=== PATIENT | female | born 1970 | race Two or more races ===

== ENCOUNTER 2017-11-08 11:41 | Observation (INO) | payer OTHER ==
[~2017-11-08] VITALS: Ht 154.9 cm; Wt 51.8 kg
[2017-11-08] MEDS ORDERED: ONDANSETRON ODT 4 MG ONE (11:58)
[2017-11-08] MEDS ORDERED: MORPHINE SULFATE 4 MG/ML, 1ML ONE (11:59)
[2017-11-08] MEDS: MORPHINE SULFATE 4 MG/ML, 1ML IVPush PRN ×2 (12:00→15:53)
[2017-11-08] MEDS ORDERED: SODIUM CHLORIDE FLUSH 10ML SYR IVF ONE (12:00)
[2017-11-08] MEDS ORDERED: ONDANSETRON ODT 4 MG PO ONE (12:00)
[2017-11-08 12:16] LABS: BASOPHILS # (AUTO) 0.02 x10^3/uL (0-0.1); BASOPHILS % (AUTO) 0 % (0-1); EOSINOPHILS # (AUTO) 0.09 x10^3/uL (0-0.4); EOSINOPHILS % (AUTO) 1 % (1-7); LYMPHOCYTES # (AUTO) 0.66 x10^3/uL (1-3.4); LYMPHOCYTES % (AUTO) 9 % (22-44); MD NO; MEAN CORPUSCULAR HEMOGLOBIN 25.9 pg (27.0-34.8); MEAN CORPUSCULAR HGB CONC 32.3 g/dL (32.4-35.8); MEAN PLATELET VOLUME 7.1 fL (7.4-10.4); MONOCYTES # (AUTO) 0.75 x10^3/uL (0.2-0.8); MONOCYTES % (AUTO) 10 % (2-9); NEUTROPHILS # (AUTO) 5.77 x10^3/uL (1.8-6.8); NEUTROPHILS % (AUTO) 79 % (42-75); PLATELET COUNT 409 x10^3/uL (130-400); RED BLOOD COUNT 5.03 x10^6/uL (3.82-5.3); RED CELL DISTRIBUTION WIDTH 15.8 % (9.6-15.2)
[2017-11-08 12:22] LABS: INTERNATIONAL NORMALIZED RATIO 1.92 (0.93-1.1); PROTHROMBIN TIME 19.7 Seconds (9.6-11.5)
[2017-11-08 12:25] LABS: ALBUMIN 3.4 g/dL (3.4-5.0); ANION GAP 6 mmol/L (5-15); CALCIUM 8.4 mg/dL (8.5-10.1); CHLORIDE 104 mmol/L (98-107); CREATININE 0.49 mg/dL (0.55-1.02)
[2017-11-08 12:30] LABS: TROPONIN I 0.061 ng/mL (0.000-0.045)
[2017-11-08] MEDS ORDERED: LORazepam 2 MG/ML, 1ML IVPush ONE (13:30)
[2017-11-08] MEDS ORDERED: OMNIPAQUE 350 MG/ML, 100ML BOTTLE ONE (13:38)
[2017-11-08] MEDS ORDERED: SODIUM CHLORIDE FLUSH 10ML SYR IVF PRN ×2 (14:00→15:00)
[2017-11-08] MEDS ORDERED: WARF2.5T73 PO ×2 (14:21→14:23)
[2017-11-08] MEDS ORDERED: Morphine IR PO (14:21)
[2017-11-08] MEDS ORDERED: MORP30TA81 PO (14:21)
[2017-11-08] MEDS ORDERED: GABA600T2 PO (14:21)
[2017-11-08] MEDS ORDERED: WARF-36 PO (14:23)
[2017-11-08] MEDS ORDERED: ONDANSETRON 2MG/ML, 2ML IVPush PRN (15:00)
[2017-11-08] MEDS ORDERED: LORazepam 2 MG/ML, 1ML IVPush PRN (15:00)
[2017-11-08] MEDS ORDERED: morphine SULFATE 15 MG TAB.IR PO PRN (15:00)
[2017-11-08] MEDS ORDERED: DOCUSATE 100 MG CAPSULE PO PRN (15:00)
[2017-11-08] MEDS ORDERED: MORPHINE SULFATE 4 MG/ML, 1ML IVPush PRN (15:00)
[2017-11-08] MEDS ORDERED: ACETAMINOPHEN 325 MG TABLET PO PRN (15:00)
[2017-11-08 15:46] VITALS: BP 114/76
[2017-11-08] MEDS: GABAPENTIN 300 MG CAPSULE PO SCH ×2 (16:00→20:16)
[2017-11-08] MEDS ORDERED: MORP60TA34 PO (17:42)
[2017-11-08] MEDS ORDERED: WARFARIN 5 MG TABLET PO-COUM ONE (18:00)
[2017-11-08 18:39] VITALS: BP 107/64
[2017-11-08 19:05] LABS: TROPONIN I 0.049 ng/mL (0.000-0.045)
[2017-11-08 20:49] VITALS: BP 105/71
[2017-11-09 00:38] VITALS: BP 106/70
[2017-11-09 01:04] LABS: INTERNATIONAL NORMALIZED RATIO 2.76 (0.93-1.1); PROTHROMBIN TIME 28.1 Seconds (9.6-11.5)
[2017-11-09 01:10] LABS: TROPONIN I 0.026 ng/mL (0.000-0.045)
[2017-11-09] MEDS: GABAPENTIN 300 MG CAPSULE PO SCH ×2 (06:07→14:53)
[2017-11-09 08:43] VITALS: BP 106/74
[2017-11-09] MEDS ORDERED: WARFARIN 5 MG TABLET PO-COUM SCH (09:00)
[2017-11-09 14:43] VITALS: BP 102/64
[2017-11-09] MEDS ORDERED: morphine SULFATE 10 MG/ML, 1ML ONE (14:44)
[2017-11-09] MEDS ORDERED: WARFARIN 2.5 MG TABLET PO-COUM ONE (18:00)
== END 2017-11-09 16:56 | disposition home or self-care (01) ==
LOC: ED 13:56 → EDIP 13:57 → INTOOBSV 13:57 → ED 14:14 → SUATTDRO 14:18 → 5SO 15:33
PROVIDERS: ADMIT Internal Medicine; ATTEND Internal Medicine
DX: J96.91 Respiratory failure, unspecified with hypoxia (principal); R07.9 Chest pain, unspecified; C90.00 Multiple myeloma not having achieved remission; D68.9 Coagulation defect, unspecified; F41.9 Anxiety disorder, unspecified; G89.3 Neoplasm related pain (acute) (chronic); Z87.891 Personal history of nicotine dependence
CPT/HCPCS: 36415; 71045; 71275; 80048; 82040; 83880; 84484; 85025; 85610; 85730; 93005; 96374; 96375; 99285; G0378; Q0162; Q9967